=== PATIENT | female | born 1990 | race Caucasian/White ===

== ENCOUNTER 2019-11-01 12:30 | Inpatient (IN) | payer MEDICAID, SELFPAY ==
[2019-11-01 12:58] VITALS: BMI 33.0
[2019-11-01] MEDS: Lactated Ringers 1,000 ML 50 ML IV (13:00)
[2019-11-01 13:17] LABS: Absolute Lymphocyte Count 2.24 X10^3/uL (0.83-4.51); Absolute Neutrophil Count 5.7 X10^3/uL (2.0-7.7); Basophil# 0.04 X10^3/uL; Basophil% 0.5 % (0-1); Eosinophil# 0.11 X10^3/uL; Eosinophils% 1.3 % (0-5); Hematocrit 33.2 % (37-47); Hemoglobin 11.3 g/dL (12.0-15.0); Lymphocyte # 2.24 X10^3/ul (4.0); Lymphocyte % 25.6 % (19-41); Mean Corpuscular Hgb 32.4 pg (27.0-32.0); Mean Corpuscular Volume 95.1 fL (81-99); Mean Platelet Vol. 10.5 fl (6.2-12.0); Monocyte# 0.32 X10^3/uL; Monocyte% 3.7 % (0-10); NRBC Flagged by Analyzer 0 % (0-5); Neutrophil # 5.71 X10^3/uL (2.7-7.7); Neutrophil % 65.2 % (47-70); Platelet Count 240 K/mm3 (150-450); RBC Distribution Width CV 13.4 % (11.6-14.6); RBC Distribution Width SD 46.2 fl (35.1-43.9); Red Blood Count 3.49 M/mm3 (4.2-5.4); White Blood Count 8.7 K/mm3 (4.4-11.0)
[2019-11-01] MEDS: Oxytocin 30 units/NS 500 ml 30 UNITS/500 ML IV.SOLN IV (13:45)
[2019-11-01] MEDS: Lactated Ringers 500 ML 999 ML IV (16:52)
--- NOTE | 2019-11-01 17:20 | PCM.HP.OB ---
History Date of Admission: 11/01/19 Final SUNNY: 11/02/19 Final SUNNY Source: US <20 weeks Gestational age: 39 Weeks and 6 Days History of this : This is a 28 4 para 2 at 39-6/7 weeks gestation presents for induction elective induction of labor. She denies any vaginal bleeding or leaking of fluid. She is had no regular contractions. She is had good movement. She had an abnormal 1 hour glucose tolerance test during the but passed the 3-hour test, she is Rh- and received Rh prophylaxis during the . She has a history of tobacco use and anemia during the . Allergies No Known Allergies Allergy (Verified 11/01/19 13:00) Home Medications: Home Medications Iron 1 tab PO BID 11/01/19 Prenatabs FA 1 tab PO DAILY 11/01/19 Smoking Status: Light Smoker (<10/day) Alcohol: None Number of Fetus(es): 1 NST - FHR Rate Baby A Baseline: normal Variability:: Moderate Accelerations:: 15 x 15 Decelerations:: None NST Reactive:: Yes FHR Category:: Category I Uterine Activity:: regular now History Past Pregnancies: Past Pregnancies Delivery Date Name GA/ Weeks Outcome Route Wt Infant Sex Labor Length Anesthesia Delivery Location Provider FOB Expected Delivery Method: Spontaneous Vaginal Review of Systems Constitutional: Denies: Chills, Fever Eyes: Denies: Blurred vision Cardiovascular: Denies: Chest Pain Respiratory: Denies: Cough Genitourinary: Denies: Dysuria Skin: Denies: Rash Neurological: Denies: Blurred vision, Change in Speech Hematologic/ Lymphatic: Reports: Anemia. Denies: Hx of blood clot Physical Exam General: Alert, Cooperative, No apparent distress Cardiovascular: Regular rate Lungs: Normal air movement Abdomen: Soft, Non Tender, Gravid Extremities:: No edema Neurological: Negative for: Slurred Speech ONCOLOGY CONSULTANT: Normal external genitalia Estimated gestational size: Appropriate for gestational size Presentation: Cephalic Cervix Dilation (cm): 2 - arom w/ moderate clear fluid Effacement (%): 75 Assessment/Plan This is a 28 year-old, 3 para 2 at 39-6/7 weeks for elective induction of labor. Risk benefits and alternatives to induction been discussed with patient, questions were answered to her satisfaction she desires to proceed. Consent was signed. Estimated weight is less than 4500 g clinically and pelvis is clinically adequate to expect vaginal delivery. Pitocin and artificial rupture membranes induction. May have epidural, nitrous oxide or IV pain meds as needed.
[2019-11-01] MEDS: fentaNYL-bupivacaine (epidural) 100 ML BAG EPIDURAL (18:43)
--- NOTE | 2019-11-01 20:26 | NURSING ---
per kris RN report, dr benitez was in surgery at time of notification and came as fast as he could to place epidural. pt okay with placement time.
[2019-11-01] MEDS: Oxytocin 30 units/NS 500 ml 30 UNITS/500 ML IV.SOLN 334 UNITS IV (22:27)
--- NOTE | 2019-11-01 22:38 | PCM.OPRPT ---
Vaginal Delivery Maternal Presentation: Elective Induction Method of Induction: Pitocin, Amniotomy Amniotic Membrane Rupture Type: Artificial Amniotic Fluid Description: Clear Final SUNNY: 11/02/19 Final SUNNY Source: US <20 weeks Gestational age: 39 Weeks and 6 Days Date of Procedure: 11/01/19 Pre-Operative Diagnosis: labor Post-Operative Diagnosis: same Surgery/ Procedure Performed: Spontaneous Vaginal Delivery Anesthesiologist: Brendon Castellanos Type of Anesthesia: Epidural Description of Procedure: A vigorous female was delivered GUILLERMO over a small first-degree perineal abrasion. A loose nuchal cord ?1 was easily reduced. The remainder the was delivered with maternal pushing and gentle traction only in less than 15 seconds. The Pitocin infusion was initiated for active management of the third stage. The cord was clamped and cut after 1 minute. The was attended to by the waiting nursing staff. The placenta was delivered spontaneously and intact. The cervix and vagina were intact. The first-degree laceration was hemostatic and not repaired. Sponge and needle counts were correct. A vaginal sweep was completed by me. Presentation: GUILLERMO Placental Delivery Description: Spontaneous Placenta Disposition: [facility] Cord Vessel Description: 3 Vessels Nuchal Cord Compression: Without compression Cord Entanglement: Around neck x 1, loose Drain: Benson to straight drain Estimated Blood Loss: 300 Infant A gender: Female (1 minute): 9 (5 minute): 9 Episiotomy Description: None Laceration: 1st degree - perineal Medications given after delivery: IV Pitocin Complications: None
[2019-11-02] MEDS: 0.9% Saline Lock 10 ML Syringe IV (01:10)
[2019-11-02] MEDS: Acetaminophen 500 MG Tablet 1000 MG PO ×3 (02:50→20:26)
[2019-11-02 03:37] VITALS: BP 127/76; PULSE 76; RESP 16; TEMP 37.2
[2019-11-02] MEDS: Naproxen 250 MG Tablet 500 MG PO ×2 (07:58→16:24)
[2019-11-02 08:01] VITALS: BP 114/70; PULSE 79; RESP 16; TEMP 36.7; O2SAT 99
--- NOTE | 2019-11-02 08:58 | PCM.PN.OB ---
Subjective: pain well controlled, average lochia - Physical Exam Vitals/I&O's: Vital Signs Temp Pulse Resp BP Pulse Ox 98.1 F 79 16 114/70 99 11/02/19 08:01 11/02/19 08:01 11/02/19 08:01 11/02/19 08:01 11/02/19 08:01 Oxygen Delivery Method Room Air Weight: 84.55 kg Body Mass Index (BMI) 33.0 Intake and Output for Last 24 Hours 10/31/19 11/01/19 11/02/19 23:59 23:59 23:59 Intake Total 1759.31 / 1759.31 1633 / 1633 Output Total 1150 / 1150 Balance 1759.31 / 1759.31 483 / 483 General: Alert, Cooperative, No apparent distress Laboratory Results 11/01/19 13:00: WBC 8.7, RBC 3.49 L, Hgb 11.3 L, Hct 33.2 L, MCV 95.1, MCH 32.4 H, MCHC 34.0, RDW Std Deviation 46.2 H, RDW Coeff of Rosa 13.4, Plt Count 240, MPV 10.5, Immature Gran % (Auto) 3.700 H, Neut % (Auto) 65.2, Lymph % (Auto) 25.6, Mcduffie % (Auto) 3.7, Eos % (Auto) 1.3, Baso % (Auto) 0.5, Absolute Neuts (auto) 5.7, Absolute Lymphs (auto) 2.24, Nucleated RBC % 0 11/01/19 13:00: Blood Type A NEGATIVE, Antibody Screen NEGATIVE 11/01/19 23:23: Screen NEGATIVE, Baby's Blood Type B POSITIVE, Baby's ATA NEGATIVE Current Medications Acetaminophen (Tylenol) 1,000 mg PO Q8H PRN PRN PRN Reason: Pain Score 1-3/10 Last Admin: 11/02/19 02:50 Dose: 1,000 mg Documented by: Bisacodyl (Dulcolax) 10 mg RECTAL UD PRN PRN Reason: If no BM Dibucaine (Dibucaine) 1 applic TOPICAL TID PRN PRN; Protocol PRN Reason: Discomfort Hydrocortisone (Hytone) 1 applic TOPICAL TID PRN PRN; Protocol PRN Reason: Discomfort Methylergonovine Maleate (Methergine) 0.2 mg IM X1 PRN PRN Reason: Excess bleeding/uterine atony Naproxen (Naprosyn) 500 mg PO Q8H PRN PRN PRN Reason: Pain Score 1-3/10 Last Admin: 11/02/19 07:58 Dose: 500 mg Documented by: Ondansetron HCl (Zofran) 4 mg IV Q4H PRN PRN PRN Reason: Nausea Oxycodone HCl (Oxyir) 5 - 10 mg PO Q4H PRN PRN PRN Reason: Pain Score 4-10/10 Senna/Docusate Sodium (Senokot-S, Leda-Colace) 1 - 2 tablet PO DAILY PRN PRN PRN Reason: Constipation Simethicone (Mylicon) 80 mg PO PCHS PRN PRN Reason: Indigestion/Stomach pain Sodium Chloride () 5 - 15 ml IV UD PRN PRN Reason: SALINE FLUSH Last Admin: 11/02/19 01:10 Dose: 10 ml Documented by: Medical Necessity - Tobacco Use Smoking Status: Light Smoker (<10/day) Assessment/Plan PPD#1 s/p doing well, routine care plan d/c home tomorrow
[2019-11-02 11:00] VITALS: BP 138/83; PULSE 83; RESP 16; TEMP 36.7; O2SAT 99
[2019-11-02 15:35] VITALS: BP 107/71; PULSE 66; TEMP 36.6
[2019-11-02 20:28] VITALS: BP 140/77; RESP 18; TEMP 36.4
[2019-11-03] MEDS: Naproxen 250 MG Tablet 500 MG PO (02:12)
[2019-11-03 02:15] VITALS: BP 129/87; PULSE 59; RESP 16; TEMP 36.4
[2019-11-03] MEDS: Acetaminophen 500 MG Tablet 1000 MG PO (06:46)
[2019-11-03 08:19] VITALS: BP 125/89; PULSE 70; RESP 14; TEMP 36.3
--- NOTE | 2019-11-03 08:56 | PCM.PN.OB ---
Subjective: Doing well per patient and nursing staff. Ambulating and taking PO without difficulty. Voiding and passing flatus. Bottle feeding, no complaints. Denies headache, visual changes, chest pain, shortness of breath, increased vaginal bleeding or pain. Planning D/C home today. - Physical Exam Vitals/I&O's: Vital Signs Temp Pulse Resp BP Pulse Ox 97.3 F L 70 14 125/89 H 99 11/03/19 08:19 11/03/19 08:19 11/03/19 08:19 11/03/19 08:19 11/02/19 11:00 Oxygen Delivery Method Room Air Weight: 186 lb 6.4 oz Body Mass Index (BMI) 33.0 Intake and Output for Last 24 Hours 11/01/19 11/02/19 11/03/19 23:59 23:59 23:59 Intake Total 1759.31 / 1759.31 1633 / 1633 Output Total 1150 / 1150 Balance 1759.31 / 1759.31 483 / 483 General: Alert, Oriented x3, Cooperative HEENT: Atraumatic, Normocephalic Neck: Trachea Midline Lungs: Clear to auscultation, Normal air movement, No rhonchi, No wheeze Cardiovascular: Regular rate, Regular Rhythm, No murmurs Abdomen: Bowel Sounds Present, Soft - Fundus firm 2 below U Extremities: No edema - Andre's negative Psych/Mental Status: Normal Affect, Appropriate Current Medications Acetaminophen (Tylenol) 1,000 mg PO Q8H PRN PRN PRN Reason: Pain Score 1-3/10 Last Admin: 11/03/19 06:46 Dose: 1,000 mg Documented by: Bisacodyl (Dulcolax) 10 mg RECTAL UD PRN PRN Reason: If no BM Dibucaine (Dibucaine) 1 applic TOPICAL TID PRN PRN; Protocol PRN Reason: Discomfort Hydrocortisone (Hytone) 1 applic TOPICAL TID PRN PRN; Protocol PRN Reason: Discomfort Influenza Virus Vaccine Quadrival (Flucelvax /Fluzone ) 0.5 ml IM .ONCE ONE Stop: 11/03/19 10:01 Methylergonovine Maleate (Methergine) 0.2 mg IM X1 PRN PRN Reason: Excess bleeding/uterine atony Naproxen (Naprosyn) 500 mg PO Q8H PRN PRN PRN Reason: Pain Score 1-3/10 Last Admin: 11/03/19 02:12 Dose: 500 mg Documented by: Ondansetron HCl (Zofran) 4 mg IV Q4H PRN PRN PRN Reason: Nausea Oxycodone HCl (Oxyir) 5 - 10 mg PO Q4H PRN PRN PRN Reason: Pain Score 4-10/10 Senna/Docusate Sodium (Senokot-S, Leda-Colace) 1 - 2 tablet PO DAILY PRN PRN PRN Reason: Constipation Simethicone (Mylicon) 80 mg PO PCHS PRN PRN Reason: Indigestion/Stomach pain Sodium Chloride () 5 - 15 ml IV UD PRN PRN Reason: SALINE FLUSH Last Admin: 11/02/19 01:10 Dose: 10 ml Documented by: Medical Necessity - Tobacco Use Smoking Status: Light Smoker (<10/day) Assessment/Plan A:PPD #2 P: 1) Routine instructions 2) Declines Rx for pain medication, will use OTC 3) BP with few mild range, follow up in 2-3 days for BP check in office with provider. Reviewed Preeclampsia signs 4) Follow up in 2 weeks and 6 weeks for care. 5) Discharge home today.
--- NOTE | 2019-11-03 09:01 | DCINST_ITS ---
Discharge Diet: No Restrictions Discharge Activity: Return to Normal Activity, May not drive while taking narcotic pain medications., May Shower, May Take a Tub Bath May resume sexual activity in: 4-6 weeks Additional Activity Instructions:: Nothing in the vagina for 4-6 weeks. You may return to work/school in 6 weeks. Call your doctor if your incision/area has: Continuous Slow Oozing, Sudden Increased Bleeding, Increased Pain/ Swelling, Increased Redness, Foul Smelling Discharge Call your doctor if you observe: Fever of 101 or Higher, Coldness, Increased Pain, Inability to urinate, Inability to have a bowel movement, Using more than one pad per hour, Shortness of breath, Chest pain, Prolonged hiccoughing, Increased palpitations (irregular heartbeat), Calf discomfort, Uncontrolled pain Instructions: After a Vaginal , Common Questions About Additional Instructions: If you experience any of the following, contact your healthcare provider. * Bleeding that soaks a pad every hour for 2 hours * Fever 100.4 or higher * Unrelieved incision or abdominal pain * Swelling, redness, discharge or bleeding from your incision or episiotomy site * Your incision begins to separate * Problems urinating (including inability to urinate or burning while urinating). * Visual changes * Severe headache * Flu-like symptoms * Pain or redness in one of both of your breasts * Pain, warmth, tenderness or swelling in your legs, especially the calf area * Frequent nausea and vomiting * Symptoms of depression or anxiety If you experience any of the following, call 911 or go to the nearest Emergency Room. * Chest pain * Problems breathing * Seizure activity * Partial or complete paralysis of a body part, slurred speech, weakness or drooping of the face, or a sudden inability to walk or hold your balance Allergies/Adverse Reactions: Allergies No Known Allergies Allergy (Verified 11/01/19 13:00) Medications to take at Discharge Prenatabs FA 1 tab PO DAILY 11/01/19 Please Follow Up With: Katia Douglas MD When: Call to make an appointment with your doctor in 2-3 days for a blood pressure check with a provider. Follow up in 2 weeks and 6 weeks for visit. Test Results: Test results from this visit will be discussed in further detail at your follow- up appointment, if applicable.
== END 2019-11-03 11:00 | disposition home or self-care (01) | DRG 560 ==
PROVIDERS: Admitting Provider Obstetrics & Gynecology; Visit Provider Obstetrics & Gynecology
DX: O99.02 Anemia complicating childbirth (principal); D64.9 Anemia, unspecified; O69.81X0 Labor and delivery complicated by cord around neck, without compression, not applicable or unspecified; O99.334 Smoking (tobacco) complicating childbirth; F17.210 Nicotine dependence, cigarettes, uncomplicated; Z3A.39 39 weeks gestation of pregnancy; Z37.0 Single live birth
CPT/HCPCS: 59025; 59050; 85025; 85461; 86850; 86900; 86901; 90384; 99218; J7120; 90686; A4216; G0378; J2790

== ENCOUNTER 2019-11-11 10:25 | Outpatient (CLI) | payer MEDICAID, SELFPAY ==
[2019-11-11 10:55] VITALS: BMI 29.7
[2019-11-11] MEDS: 0.9 % NaCl (Sterile) Posiflush 10 mL IV ×5 (11:00→12:20)
[2019-11-11 11:20] LABS: Hematocrit 38.9 % (37-47); Hemoglobin 12.6 g/dL (12.0-15.0); Mean Corp Hgb Conc 32.4 g/dL (32-36); Mean Corpuscular Hgb 30.9 pg (27.0-32.0); Mean Corpuscular Volume 95.3 fL (81-99); Mean Platelet Vol. 9.4 fl (6.2-12.0); Platelet Count 375 K/mm3 (150-450); RBC Distribution Width CV 12.6 % (11.6-14.6); Red Blood Count 4.08 M/mm3 (4.2-5.4); White Blood Count 11.1 K/mm3 (4.4-11.0)
[2019-11-11 11:28] LABS: Prothrombin Time (Protime)PT. 12.9 SECONDS (11.7-14.9)
[2019-11-11 11:29] LABS: Partial Thromboplast Time 32.9 Seconds (24.1-36.2)
[2019-11-11] MEDS: NIFEdipine 30 MG Tablet PO (11:29)
[2019-11-11] MEDS: Labetalol 100 MG/20 ML Vial 40 MG IV (11:40)
[2019-11-11 11:46] LABS: AST(SGOT) 9 U/L (15-37); Alanine Aminotransfer ALT/SGPT 26 U/L (13-56); Creatinine, Serum 0.73 mg/dL (0.55-1.02); EST Glomerular Filtration Rate 98 mL/min (>60); Est Glom Filt Rate - Afr Amer 119 mL/min (>60); Estimated Creatinine Clearance 93.22 ml/min; Thyroid Stim Hormone (TSH) 0.76 uIU/mL (0.358-3.74)
[2019-11-11] MEDS: Labetalol 100 MG/20 ML Vial 80 MG IV (11:59)
[2019-11-11 12:18] VITALS: BP 174/105; PULSE 64
[2019-11-11] MEDS: hydrALAZINE 20 MG/ML Vial 10 MG IV (12:18)
--- NOTE | 2019-11-11 13:03 | OB.TRI.HP_ITS ---
History of Present Illness Date of Service: 11/11/19 Was patient seen by the physician?: Yes Reason For Visit: PRE ECLAMPSIA EVALUATION Final SUNNY Source: US <20 weeks History of Present Illness: Patient presents from office with elevated blood pressures. In the office she reported intermittent headaches over the weekend that had resolved. Allergies No Known Allergies Allergy (Verified 11/01/19 13:00) Laboratory Studies: Laboratory Tests 11/11/19 11/11/19 11/11/19 Range/Units 11:00 11:00 11:00 WBC 11.1 H (4.4-11.0) K/mm3 RBC 4.08 L (4.2-5.4) M/mm3 Hgb 12.6 (12.0-15.0) g/dL Hct 38.9 (37-47) % MCV 95.3 (81-99) fL MCH 30.9 (27.0-32.0) pg MCHC 32.4 (32-36) g/dL RDW Std Deviation 44.0 H (35.1-43.9) fl RDW Coeff of Rosa 12.6 (11.6-14.6) % Plt Count 375 (150-450) K/mm3 MPV 9.4 (6.2-12.0) fl PT 12.9 (11.7-14.9) SECONDS INR 1.0 APTT 32.9 (24.1-36.2) Seconds Creatinine 0.73 (0.55-1.02) mg/dL Estim Creat Clear Calc 93.22 ml/min Est GFR (MDRD) Af Amer 119 (>60) mL/min Est GFR (MDRD) Non-Af 98 (>60) mL/min AST 9 L (15-37) U/L ALT 26 (13-56) U/L TSH 0.76 (0.358-3.74) uIU/mL Physical Exam Vitals: Vital Signs Pulse BP 64 174/105 H 11/11/19 12:18 11/11/19 12:18 General: Alert, Oriented x3 Neurological: Clonus - per RN Impression/Plan 28yo female 10 days PP with hypertensive emergency Patient has received IV labetalol & hydralazine and BP remains significantly elevated (175-194/89-105). I strongly recommend magnesium sulfate therapy & possible nicardipine drip to control her BP and prevent seizures. Also I recommend further evaluation of her BP's including an echo. Patient has been extensively counseled by myself and . She is aware that be choosing to leave [facility] she is at risk of seizures, hemorrhagic stroke, possible & other adverse outcomes by choosing to leave and not comply with recommended me dical treatment. Patient also advised to not drive as she could put herself & others at risk.
--- NOTE | 2019-11-11 13:06 | ECHOD_ITS ---
Reason For Study: R/O PP Cardiomyopathy Procedure This was a 2D Doppler, Color Flow transthoracic echocardiogram. The exam was of adequate technical quality. Exam performed portable in patient room. Left Ventricle Normal LV size. Left ventricular systolic function is normal. The estimated ejection fraction is 65 %. No evidence for diastolic dysfunction. No regional wall motion abnormalities noted. Right Ventricle Normal RV size. Normal systolic function. Atria Normal left atrium. Normal right atrium. No doppler evidence for ASD. Mitral Valve There is no mitral annular calcification. Normal mitral valve. Trivial mitral valve insufficiency. Tricuspid Valve Normal tricuspid valve. Trivial tricuspid valve insufficiency. Aortic Valve Trisinus/trileaflet aortic valve. Normal aortic valve. Pulmonic Valve The pulmonic valve is not well visualized. Trivial pulmonic valve insufficiency. Great Vessels Normal sized aortic root. Pericardium/Pleural No pericardial effusion. MMode/2D Measurements & Calculations LVIDd: 4.9 cm IVSd: 1.1 cm Ao root diam: 3.0 cm LVIDs: 3.2 cm LVPWd: 1.1 cm LA dimension: 3.8 cm RVDd: 2.9 cm FS: 35.1 % LAV(MOD-bp): 56.3 ml LA A4 area: 19.9 cm2 RA A4 area: 11.5 cm2 LAV(MOD-bp) Indexed: 31.3 ml/m2 LAV(MOD-sp2): 46.8 ml LAV(MOD-sp4): 57.8 ml Time Measurements MV dec time: 0.19 sec Doppler Measurements & Calculations MV E max thaddeus: 115.4 cm/sec Lat Peak E' Thaddeus: 13.6 cm/sec Med Peak E' Thaddeus: 9.4 cm/sec MV A max thaddeus: 117.0 cm/sec E/E' lat: 8.5 E/E' med: 12.2 MV E/A: 0.99 MV V2 max: 157.0 cm/sec MV P1/2t max thaddeus: 157.0 cm/sec Ao V2 max: 193.5 cm/sec MV max P.9 mmHg MV P1/2t: 51.1 msec Ao max P.0 mmHg MV V2 mean: 84.3 cm/sec MV dec slope: 900.0 cm/sec2 MV mean P.4 mmHg MVA(P1/2t): 4.3 cm2 MV V2 VTI: 31.0 cm LV V1 max: 169.5 cm/sec PA V2 max: 147.3 cm/sec LV V1 max P.5 mmHg Interpretation Summary Left ventricular systolic function is normal. The estimated ejection fraction is 65 %. Trivial mitral valve insufficiency. Trivial tricuspid valve insufficiency. Trivial pulmonic valve insufficiency. No evidence for diastolic dysfunction. Ordering Physician: Jyothi Munroe Referring Physician: Katia Douglas Performed By: Prashant Chairez RCS
[2019-11-11] MEDS: NIFEdipine 10 MG Capsule PO (13:15)
[2019-11-11] MEDS: NIFEdipine 10 MG Capsule 20 MG PO (13:37)
[2019-11-11 14:03] LABS: Anion Gap 6 (5-15); BUN 19 mg/dL (7-18); BUN/Creat Ratio 24.3 RATIO (10-20); Calcium,Total 9.2 mg/dL (8.5-10.1); Chloride 111 mmol/L (98-107); Creatinine, Serum 0.78 mg/dL (0.55-1.02); EST Glomerular Filtration Rate 91 mL/min (>60); Est Glom Filt Rate - Afr Amer 111 mL/min (>60); Estimated Creatinine Clearance 87.24 ml/min; Glucose 98 mg/dL (74-106); Potassium 4.5 mmol/L (3.5-5.1); Sodium Level 142 mmol/L (136-145)
[2019-11-11] MEDS: Labetalol 200 MG Tablet PO (14:25)
[2019-11-11 14:32] LABS: BNP,B-Type NATRIURETIC PEPTIDE 111.5 pg/mL (0-100)
== END 2019-11-11 15:17 | disposition left against medical advice (07) ==
LOC: WPOUT 10:35 → WP 10:36
PROVIDERS: Obstetrics & Gynecology; Referring Provider Obstetrics & Gynecology; Visit Provider Obstetrics & Gynecology
DX: O16.5 Unspecified maternal hypertension, complicating the puerperium (principal); I16.1 Hypertensive emergency
CPT/HCPCS: 96374; 96375; 96376; 36415; 80048; 82565; 83880; 84443; 84450; 84460; 85027; 85610; 85730; 93306; 94760; 99218; G0378